=== PATIENT | male | born 1940 | race Caucasian/White ===

== ENCOUNTER 2017-07-08 14:11 | Day surgery (SDC) | payer OTHER ==
[~2017-07-08] VITALS: Ht 165.1 cm; Wt 77.6 kg
[~2017-07-08 14:11] MED LIST: ASPI325 PO; ATOR40TA PO; Antivert25 MG PO; CLOP75 PO; DILT120 PO; GLIP10 PO; HYDCHL12.5 PO; HYDPAM50 PO; ISOMON30 PO; MECL25 PO; METO50ER PO; MULVITMIND PO; NITR.4SL SL; ONDA8 PO; OXYB5 PO; QUET25 PO; RANO500T PO; SALS500 PO
[2017-07-08] MEDS ORDERED: INSULANPEN (14:52)
[2017-07-08] MEDS ORDERED: AMIT25 (14:53)
[2017-07-08] MEDS ORDERED: AMLO5 (14:53)
[2017-07-08] MEDS ORDERED: FINA5 (14:54)
[2017-07-08] MEDS ORDERED: GLUCOSE (14:54)
[2017-07-08] MEDS ORDERED: NOVOFINE (14:55)
[2017-07-08] MEDS ORDERED: TAMS.4ER (14:55)
[2017-07-08] MEDS ORDERED: LEVO750 PO (16:30)
== END 2017-07-08 14:45 | disposition home or self-care (01) ==
LOC: ORSCSDS 14:11
DX: R11.2 Nausea with vomiting, unspecified (principal)
CPT/HCPCS: 82947; J7120

== ENCOUNTER 2017-07-08 15:05 | Emergency (ER) | payer OTHER ==
[~2017-07-08] VITALS: Ht 165.1 cm; Wt 72.6 kg
[~2017-07-08 15:05] MED LIST changes: +AMIT25; +AMLO5; +FINA5; +GLUCOSE; +INSULANPEN; +NOVOFINE; +TAMS.4ER
[2017-07-08 15:39] LABS: BASOPHILS ABSOLUTE AUTO 0.03 K/mm3 (0.00-0.23); BASOPHILS PERCENT AUTO 0 % (0-2); EOSINOPHILS ABSOLUTE AUTO 0.29 K/mm3 (0.00-0.68); EOSINOPHILS PERCENT AUTO 4 % (0-6); Hematocrit 40.7 % (37.0-53.0); Hemoglobin 13.8 g/dL (13.5-17.5); IMMATURE GRAN ABSOLUTE AUTO 0.02 K/mm3 (0.00-0.10); IMMATURE GRAN PERCENT AUTO 0 % (0-1); LYMPHOCYTES ABSOLUTE AUTO 1.61 K/mm3 (0.84-5.20); LYMPHOCYTES PERCENT AUTO 24 % (21-46); MONOCYTES ABSOLUTE AUTO 0.77 K/mm3 (0.16-1.47); MONOCYTES PERCENT AUTO 12 % (4-13); Mean Corpuscular HGB 30.1 pg (26.0-34.0); Mean Corpuscular HGB Conc 33.9 g/dL (31.5-36.5); Mean Corpuscular Volume 89 fL (80-100); Mean Platelet Volume 10.9 fL (9.1-12.4); NEUTROPHILS PERCENT AUTO 60 % (41-73); Platelet Count 163 K/mm3 (150-400); RDW Coefficient Variation 12.3 % (11.7-14.2); RDW Standard Deviation 39.7 fL (35.1-46.3); Red Blood Cell Count 4.59 M/mm3 (4.30-5.90); White Blood Cell Count 6.72 K/mm3 (4.00-11.30)
[2017-07-08 16:05] LABS: Alanine Aminotransfer (ALT/SGP 27 U/L (12-78); Albumin, Blood 3.7 g/dL (3.4-5.0); Alk Phos 71 U/L (50-136); Anion Gap 8 mmol/L (6-16); Aspartate Aminotrans (AST/SGOT 16 U/L (12-37); Bilirubin, Total 1.4 mg/dL (0.1-1.0); Blood Urea Nitrogen 29 mg/dL (8-24); Bun/Creatinine Ratio 17.9 (12.0-20.0); CO2, Blood 24 mmol/L (21-32); Calcium, Blood 8.7 mg/dL (8.5-10.1); Chloride, Blood 107 mmol/L (98-108); Creatinine, Blood 1.62 mg/dL (0.60-1.20); Globulin, Blood 3.8 g/dL (2.2-4.0); Glomerular Filtration Rate 44 (60-); Glucose, Blood 142 mg/dL (70-99); Potassium, Blood 4.1 mmol/L (3.5-5.5); Sodium, Blood 139 mmol/L (136-145); Total Protein, Blood 7.5 g/dL (6.4-8.2); Troponin I <0.015 ng/mL (0.000-0.040)
[2017-07-08] MEDS ORDERED: LEVO750 PO (16:30)
== END 2017-07-08 16:50 | disposition home or self-care (01) ==
LOC: ER 15:05
PROVIDERS: Emergency Medicine
DX: N28.9 Disorder of kidney and ureter, unspecified (principal); K21.9 Gastro-esophageal reflux disease without esophagitis; R07.9 Chest pain, unspecified; E11.9 Type 2 diabetes mellitus without complications; I10 Essential (primary) hypertension; Z87.891 Personal history of nicotine dependence; Z88.5 Allergy status to narcotic agent; Z88.8 Allergy status to other drugs, medicaments and biological substances; Z79.899 Other long term (current) drug therapy; Z79.4 Long term (current) use of insulin
CPT/HCPCS: 36415; 71046; 80053; 83880; 84484; 85025; 93005; 93010; 99284

== ENCOUNTER 2018-04-28 09:29 | Day surgery (SDC) | payer OTHER ==
[~2018-04-28] VITALS: Ht 165.1 cm; Wt 77.9 kg
[~2018-04-28 09:29] MED LIST changes: +LEVO750 PO
--- NOTE | 2018-04-28 11:17 | NUR ---
04/28/18 1117 Gianni Sanchez PT AMBULATED TO BATHROOM WELL. WAITING FOR ANESTHESIOLOGIST TO ASSESS THE PATIENT.
== END 2018-04-28 12:25 | disposition home or self-care (01) ==
LOC: ORSCSDS 09:29
PROVIDERS: Internal Medicine Gastroenterology
PROC: 0DB98ZX Excision of Duodenum, Via Natural or Artificial Opening Endoscopic, Diagnostic (ICD-10-PCS; principal; 2018-04-28 11:15)
PROC: 0DB58ZX Excision of Esophagus, Via Natural or Artificial Opening Endoscopic, Diagnostic (ICD-10-PCS; principal; 2018-04-28 11:15)
DX: K21.0 Gastro-esophageal reflux disease with esophagitis (principal); K29.80 Duodenitis without bleeding; K29.70 Gastritis, unspecified, without bleeding; I10 Essential (primary) hypertension; I25.10 Atherosclerotic heart disease of native coronary artery without angina pectoris; E11.9 Type 2 diabetes mellitus without complications; Z86.73 Personal history of transient ischemic attack (TIA), and cerebral infarction without residual deficits; G47.33 Obstructive sleep apnea (adult) (pediatric); Z79.4 Long term (current) use of insulin; Z79.899 Other long term (current) drug therapy
CPT/HCPCS: 82947; 88305; J7120

== ENCOUNTER 2018-08-29 10:04 | Inpatient (IN) | payer OTHER ==
[~2018-08-29] VITALS: Ht 167.6 cm; Wt 77.7 kg
[2018-08-29 11:29] LABS: Hematocrit 45.6 % (37.0-53.0); Hemoglobin 15.1 g/dL (13.5-17.5); Mean Corpuscular HGB 30.4 pg (26.0-34.0); Mean Corpuscular HGB Conc 33.1 g/dL (31.5-36.5); Mean Corpuscular Volume 92 fL (80-100); Platelet Count 171 K/mm3 (150-400); RDW Coefficient Variation 11.9 % (11.7-14.2); RDW Standard Deviation 40.7 fL (35.1-46.3); Red Blood Cell Count 4.97 M/mm3 (4.30-5.90); White Blood Cell Count 8.27 K/mm3 (4.00-11.30)
[2018-08-29 11:52] LABS: Alanine Aminotransfer (ALT/SGP 29 U/L (12-78); Albumin, Blood 3.5 g/dL (3.4-5.0); Alk Phos 72 U/L (50-136); Anion Gap 6 mmol/L (6-16); Aspartate Aminotrans (AST/SGOT 26 U/L (12-37); Bilirubin, Total 1.2 mg/dL (0.1-1.0); Blood Urea Nitrogen 31 mg/dL (8-24); Bun/Creatinine Ratio 23.7 (12.0-20.0); CHOL/HDL RATIO 4.9; CO2, Blood 25 mmol/L (21-32); Calcium, Blood 8.5 mg/dL (8.5-10.1); Chloride, Blood 109 mmol/L (98-108); Cholesterol 215 mg/dL (50-200); Creatinine, Blood 1.31 mg/dL (0.60-1.20); Globulin, Blood 3.6 g/dL (2.2-4.0); Glomerular Filtration Rate 56 (60-); Glucose, Blood 244 mg/dL (70-99); HDL Cholesterol 44 mg/dL (>39); LDL/HDL RATIO 3.6; Low Density Lipoprotein Chol 157 mg/dL (0-110); Magnesium, Blood 1.9 mg/dL (1.6-2.4); Potassium, Blood 3.9 mmol/L (3.5-5.5); Sodium, Blood 140 mmol/L (136-145); Total Protein, Blood 7.1 g/dL (6.4-8.2); Triglycerides 68 mg/dL (30-160); Very Low Density Lipoprot Chol 13 mg/dL (6-32)
[2018-08-29 11:57] LABS: International Normalized Ratio 1.04
--- NOTE | 2018-08-29 13:04 | NUR ---
ADMIT PT ARRIVED TO ICU 2 AT 1210. PT DROWSY, BUT ORIENTED. SLOW TO RESPOND TO QUESTIONS. PT ORIENTED TO ROOM, CALL LIGHT AND PLAN OF CARE. ACTIVITY RESTRICTIONS REGARDING GROIN SITE EXPLAINED TO PT AND PT VERBALIZED UNDERSTANDING. DR. REECE TO THE ROOM TO TALK WITH PT. AWAITING DOC'S DECISION AT [facility] TO SEE IF PT WILL TRANSFER. PT AT FIRST DENIED HAVING ANY FAMILY OR FRIENDS HE WANTED INFORMED, BUT THEN REQUESTED HIS FRIEND JAYCE BE NOTIFIED. TC TO JAYCE TO GIVE UPDATE AND THEN PT TALKED WITH JAYCE WELL. GROIN SITE REMAINS C/D/I, SOFT, NO HEMATOMA. CONTINUING TO MONITOR.
--- NOTE | 2018-08-29 13:25 | NUR ---
PT GOT ACCEPTED TO [facility] AND HAS A BED. PT INFORMED AND TRANSPORT BEING ARRANGED.
--- NOTE | 2018-08-29 13:57 | NUR ---
REPORT CALLED TO LIZZIE CALIX AT [facility]. GROUND TRANSPORTATION ARRANGED.
--- NOTE | 2018-08-29 14:43 | NUR ---
PT DISCHARGED VIA AMBULANCE TO [facility]. ALL BELONGINGS SENT WITH PT.
== END 2018-08-29 14:44 | disposition short-term general hospital (02) | DRG 282 ==
LOC: ER 10:04 → ICUW 10:05 → ICUE 11:43
PROVIDERS: Emergency Medicine; ADMIT Internal Medicine Interventional Cardiology
PROC: B2121ZZ Fluoroscopy of Single Coronary Artery Bypass Graft using Low Osmolar Contrast (ICD-10-PCS; principal; 2018-08-29)
PROC: B2111ZZ Fluoroscopy of Multiple Coronary Arteries using Low Osmolar Contrast (ICD-10-PCS; 2018-08-29)
PROC: 4A023N7 Measurement of Cardiac Sampling and Pressure, Left Heart, Percutaneous Approach (ICD-10-PCS; 2018-08-29)
PROC: B2151ZZ Fluoroscopy of Left Heart using Low Osmolar Contrast (ICD-10-PCS; 2018-08-29)
DX: I21.3 ST elevation (STEMI) myocardial infarction of unspecified site (principal); Z79.4 Long term (current) use of insulin; Z87.891 Personal history of nicotine dependence; Z95.1 Presence of aortocoronary bypass graft; E78.5 Hyperlipidemia, unspecified; E11.9 Type 2 diabetes mellitus without complications
CPT/HCPCS: 71045; 80053; 80061; 83735; 84484; 85027; 85610; 85730; 86850; 86900; 86901; 93005; 93010; 93459; 99152; 99153; 99285-25; C1760; C1769; J1644; J2250; J3010; J7030; Q9967

== ENCOUNTER 2020-09-28 21:30 | Emergency (ER) | payer OTHER ==
[~2020-09-28] VITALS: Ht 175.3 cm; Wt 68.0 kg
[~2020-09-28 21:30] MED LIST changes: -AMIT25; +AMIT25 PO; -AMLO5; +AMLO5 PO; +Aspirin EC81 MG PO; +BASAGLAR K100 UNIT/1 SC; +CITALOPRAM HBR10 MG PO; +Carafate1 GM/10 ML PO; -FINA5; +FINA5 PO; +Fish Oil Conc1000 MG PO; -INSULANPEN; +INSULANPEN SC; -ISOMON30 PO; +Imdur60 MG PO; +Oyster Shell C500 MG PO; +PANT40 PO; -TAMS.4ER; +TAMS.4ER PO; +Vitamin D2000 UNIT PO; +Zantac150 MG PO
[2020-09-28 22:39] LABS: Source, Urine Clean Catch
[2020-09-28 22:42] LABS: Bilirubin, Urine Neg (Neg); Blood, Urine 2+ (Neg); Glucose Qualitative, Urine 2+ (Neg); Ketones, Urine 2+ (Neg); Leukocyte Esterase, Urine Neg (Neg); Nitrite, Urine Neg (Neg); Protein, Urine 3+ (Neg); Specific Gravity, Urine 1.015 (1.003-1.022); Urobilinogen, Urine NORM (Normal); pH, Urine 6.5 (5.0-8.0)
[2020-09-28 22:44] LABS: BASOPHILS ABSOLUTE AUTO 0.02 K/mm3 (0.00-0.23); BASOPHILS PERCENT AUTO 0 % (0-2); EOSINOPHILS ABSOLUTE AUTO 0.01 K/mm3 (0.00-0.68); EOSINOPHILS PERCENT AUTO 0 % (0-6); Hematocrit 44.2 % (37.0-53.0); IMMATURE GRAN ABSOLUTE AUTO 0.02 K/mm3 (0.00-0.10); IMMATURE GRAN PERCENT AUTO 0 % (0-1); LYMPHOCYTES ABSOLUTE AUTO 0.54 K/mm3 (0.84-5.20); LYMPHOCYTES PERCENT AUTO 12 % (21-46); MONOCYTES ABSOLUTE AUTO 0.89 K/mm3 (0.16-1.47); MONOCYTES PERCENT AUTO 19 % (4-13); Mean Corpuscular HGB 30.5 pg (26.0-34.0); Mean Corpuscular HGB Conc 33.9 g/dL (31.5-36.5); Mean Corpuscular Volume 90 fL (80-100); Mean Platelet Volume 11.3 fL (9.1-12.4); NEUTROPHILS PERCENT AUTO 68 % (41-73); Platelet Count 119 K/mm3 (150-400); RDW Coefficient Variation 11.9 % (11.7-14.2); Red Blood Cell Count 4.92 M/mm3 (4.30-5.90); White Blood Cell Count 4.58 K/mm3 (4.00-11.30)
[2020-09-28 22:45] LABS: Appearance, Urine Clear (Clear); Color, Urine Yellow (P-Yellow)
[2020-09-28 22:52] LABS: Bacteria Not Seen /hpf; Red Blood Cells, Urine 0-2 /hpf (0-2); Squamous Epithelial Cells Not Seen /hpf (Few); White Blood Cells, Urine Not Seen /hpf (0-5)
[2020-09-28 23:08] LABS: Albumin, Blood 3.7 g/dL (3.4-5.0); Albumin/Globulin Ratio 0.9 (0.8-1.8); Bilirubin, Total 1.4 mg/dL (0.1-1.0); Bun/Creatinine Ratio 19.2 (12.0-20.0); Calcium, Blood 8.8 mg/dL (8.5-10.1); Creatinine, Blood 1.51 mg/dL (0.60-1.20); Free Thyroxine 1.16 ng/dL (0.70-1.60); Potassium, Blood 3.9 mmol/L (3.5-5.5); Thyroid Stimulating Hormone 0.33 uIU/mL (0.360-4.800); Total Protein, Blood 7.7 g/dL (6.4-8.2)
== END 2020-09-29 02:03 | disposition home or self-care (01) ==
LOC: ER 21:30
PROVIDERS: Emergency Medicine
DX: R11.2 Nausea with vomiting, unspecified (principal); R10.9 Unspecified abdominal pain; I10 Essential (primary) hypertension; E11.9 Type 2 diabetes mellitus without complications; E78.5 Hyperlipidemia, unspecified; R41.0 Disorientation, unspecified; R47.9 Unspecified speech disturbances; Z79.82 Long term (current) use of aspirin; Z79.4 Long term (current) use of insulin; Z79.899 Other long term (current) drug therapy; Z95.1 Presence of aortocoronary bypass graft; Z88.5 Allergy status to narcotic agent; Z88.8 Allergy status to other drugs, medicaments and biological substances
CPT/HCPCS: 70450; 71045; 80053; 81001; 82140; 84439; 84443; 84484; 85025; 96374; 99285-25; J2405

== ENCOUNTER 2020-10-02 08:03 | Inpatient (IN) | payer OTHER ==
[~2020-10-02] VITALS: Ht 167.6 cm; Wt 65.7 kg
[2020-10-02 08:57] LABS: BASOPHILS ABSOLUTE AUTO 0.01 K/mm3 (0.00-0.23); BASOPHILS PERCENT AUTO 0 % (0-2); EOSINOPHILS PERCENT AUTO 0 % (0-6); Hematocrit 50.9 % (37.0-53.0); Hemoglobin 17.2 g/dL (13.5-17.5); IMMATURE GRAN ABSOLUTE AUTO 0.03 K/mm3 (0.00-0.10); IMMATURE GRAN PERCENT AUTO 1 % (0-1); LYMPHOCYTES ABSOLUTE AUTO 0.57 K/mm3 (0.84-5.20); LYMPHOCYTES PERCENT AUTO 13 % (21-46); MONOCYTES ABSOLUTE AUTO 0.59 K/mm3 (0.16-1.47); MONOCYTES PERCENT AUTO 13 % (4-13); Mean Corpuscular HGB 30.3 pg (26.0-34.0); Mean Corpuscular HGB Conc 33.8 g/dL (31.5-36.5); Mean Corpuscular Volume 90 fL (80-100); Mean Platelet Volume 12.1 fL (9.1-12.4); NEUTROPHILS ABSOLUTE AUTO 3.22 K/mm3 (1.96-9.15); NEUTROPHILS PERCENT AUTO 73 % (41-73); Platelet Count 116 K/mm3 (150-400); RDW Coefficient Variation 11.8 % (11.7-14.2); Red Blood Cell Count 5.68 M/mm3 (4.30-5.90); White Blood Cell Count 4.42 K/mm3 (4.00-11.30)
[2020-10-02 09:00] LABS: Albumin, Blood 3.7 g/dL (3.4-5.0); Albumin/Globulin Ratio 0.8 (0.8-1.8); Bilirubin, Total 1.4 mg/dL (0.1-1.0); Bun/Creatinine Ratio 23.9 (12.0-20.0); Calcium, Blood 8.8 mg/dL (8.5-10.1); Creatinine, Blood 1.84 mg/dL (0.60-1.20); Globulin, Blood 4.5 g/dL (2.2-4.0); Potassium, Blood 4.4 mmol/L (3.5-5.5); Total Protein, Blood 8.2 g/dL (6.4-8.2)
[2020-10-02 09:16] LABS: Source, Urine Clean Catch
[2020-10-02 09:16] LABS: Ethanol (Alcohol), Blood, Med <3 mg/dL; Magnesium, Blood 2.1 mg/dL (1.6-2.4); Troponin I <0.015 ng/mL (0.000-0.040)
[2020-10-02 09:27] LABS: Appearance, Urine Clear (Clear); Bilirubin, Urine Neg (Neg); Blood, Urine 3+ (Neg); Color, Urine Yellow (P-Yellow); Glucose Qualitative, Urine 3+ (Neg); Ketones, Urine 2+ (Neg); Leukocyte Esterase, Urine Neg (Neg); Nitrite, Urine Neg (Neg); Protein, Urine 3+ (Neg); Specific Gravity, Urine 1.015 (1.003-1.022); Urobilinogen, Urine NORM (Normal)
[2020-10-02 09:39] LABS: Amorphous Mod (0-Heavy); Bacteria Rare /hpf; Squamous Epithelial Cells Rare /hpf (Few); White Blood Cells, Urine 0-2 /hpf (0-5)
[2020-10-02 09:51] LABS: SARS-Cov-2 (COVID-19) PCR, MMC POSITIVE (NEGATIVE)
[2020-10-02] MEDS ORDERED: MULTIPLE VITAM1 EACH PO (15:33)
[2020-10-02] MEDS ORDERED: PROP10 PO (15:35)
[2020-10-02] MEDS ORDERED: VITAMIN E100 UNI1 PO (15:37)
[2020-10-02] MEDS ORDERED: PERIDEX15 ML PO (15:41)
--- NOTE | 2020-10-02 16:36 | NUR ---
CALLED FOR REPORT, INSTRUCTED THAT THIS RN WILL BE CALLED BACK BY ED RN
[2020-10-02] MEDS ORDERED: METO25 PO (17:07)
--- NOTE | 2020-10-02 17:17 | NUR ---
SBAR REPORT FROM TARIQ MARTINEZ RN
--- NOTE | 2020-10-02 18:23 | NUR ---
DISCHARGE PLANNING NEPHEW BEVERLY DAMIAN LIVES IN [place], CAME TO HELP AFTER CAREGIVER COULD NOT CARE FOR PT ANY LONGER. SISTER LIVES IN [place], [place]. NEPHEW WOULD LIKE TO PLACE IN FACILITY IN [place] WITH [facility], WHEN ABLE. AT THIS TIME, UPON DISCHARGE, HE WOULD LIKE TO PLACE HIM NEAR AN AIRPORT: [place] OR [place].
--- NOTE | 2020-10-03 02:53 | NUR ---
elderly Male PT admitted yesterday with AMS & Covid 19. He is DNR status. IV NS fluid bolus 500 ml given & has 1 l IVF with K infusing. He is not responsive to verbal stimuli resting quietly in special droplet contact isolation for Covid 19. [employer]. Has Sister out of state, had caregiver who reportedly quit. HAs not eaten or drinken this shift. Was medicated in ER for aggitated delirum & has been sleeping. 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 On oxygen 2 l for covid pneumonia.
[2020-10-03 06:23] LABS: BASOPHILS ABSOLUTE AUTO 0.02 K/mm3 (0.00-0.23); BASOPHILS PERCENT AUTO 0 % (0-2); EOSINOPHILS PERCENT AUTO 0 % (0-6); Hematocrit 48.1 % (37.0-53.0); Hemoglobin 15.8 g/dL (13.5-17.5); IMMATURE GRAN ABSOLUTE AUTO 0.02 K/mm3 (0.00-0.10); IMMATURE GRAN PERCENT AUTO 0 % (0-1); LYMPHOCYTES ABSOLUTE AUTO 1.19 K/mm3 (0.84-5.20); LYMPHOCYTES PERCENT AUTO 23 % (21-46); MONOCYTES ABSOLUTE AUTO 0.62 K/mm3 (0.16-1.47); MONOCYTES PERCENT AUTO 12 % (4-13); Mean Corpuscular HGB 30.2 pg (26.0-34.0); Mean Corpuscular HGB Conc 32.8 g/dL (31.5-36.5); Mean Corpuscular Volume 92 fL (80-100); Mean Platelet Volume 11.9 fL (9.1-12.4); NEUTROPHILS ABSOLUTE AUTO 3.37 K/mm3 (1.96-9.15); NEUTROPHILS PERCENT AUTO 65 % (41-73); Platelet Count 104 K/mm3 (150-400); RDW Coefficient Variation 12.2 % (11.7-14.2); RDW Standard Deviation 41.3 fL (35.1-46.3); Red Blood Cell Count 5.23 M/mm3 (4.30-5.90); White Blood Cell Count 5.22 K/mm3 (4.00-11.30)
--- NOTE | 2020-10-03 06:37 | NUR ---
pt ADMITTEDFOR cOVID 19 PNEUMONIA & ams. hEAD ct SHOWS MULIPLE BRAIN INFARCTS. S pt SLEPT SOUNDLY MOST OF SHIFT WOKEN UP TO TOILET. pt USED URINAL WITH ASSIST & VOIDED ONLY 200 ML T 1 URINARY INCONT. iv ns FLUID BOLUS 500 ML & 1 L IV FLUIDS WITH POTASSIUM RUNNING. dRINKING SOME WITH VIA STRAW. pt HAS WEAK LOOSE NONPROD COUGH SUCTION SET UP &^ PT ALLOWED BUT CONTINUES NONPRODUCTIVE
[2020-10-03 06:40] LABS: Albumin, Blood 3.1 g/dL (3.4-5.0); Albumin/Globulin Ratio 0.7 (0.8-1.8); Bilirubin, Total 0.8 mg/dL (0.1-1.0); Bun/Creatinine Ratio 25.4 (12.0-20.0); Calcium, Blood 8.3 mg/dL (8.5-10.1); Creatinine, Blood 1.93 mg/dL (0.60-1.20); Globulin, Blood 4.2 g/dL (2.2-4.0); Total Protein, Blood 7.3 g/dL (6.4-8.2)
--- NOTE | 2020-10-03 11:26 | NUR ---
Update 10/03/20: Per chart review, pt. will not be appropriate to return home based on care needs. [facility] listed for primary insurance. Does not have group home care benefits. If the patient's condition improves over the next few days, I will begin to talk with the family and caregiver regarding financial planning for facility placement. There is a potential need for hospice care as well. Plan to continue to monitor patient's course and provide care coordination as needed.
--- NOTE | 2020-10-03 12:08 | NUR ---
Upon receiving a spiritual care consult, I visit patient. Patient is lying in bed and alert. No family present. Patient immediately laughs at my jokes for rapport is easily established. Patient struggles to communicate and relay information but is clearly able to confirm that he would like a prayer to be said for him. I galdly provide prayer. Patient is uplifted in his affect without much effort and is quick to smile and laugh. Patient may not remember my visit but during our interaction his mood is elevated and his peace is increased. I will continue to remain available to patient and family.
--- NOTE | 2020-10-03 15:30 | NUR ---
SHIFT SUMMARY ON ROOM AIR. MORE ALERT TODAY AND AWAKE MOST OF SHIFT. SPEECH NON-SENSICAL AND PARANOID AT TIMES. IMPULSIVE: PULLED IV, CONDOM CATH, AND ATTEMPTED TO GET OUT OF BED ONCE. IV REPLACED. POOR INTAKE/APPETITE. NEPHEW AT BEDSIDE MOST OF SHIFT, PLANS ON RETURNING HOME TO [place] TOMORROW, AND OTHER FAMILY COMING INTO TOWN LATER THIS WEEK TO HELP FACILITATE DISCHARGE PLANNING/PLACEMENT.
--- NOTE | 2020-10-03 17:11 | NUR ---
Update 10/03/20 1645: Met with patient's nephew to discuss long-term care planning. At this time, the pt. is not appropriate to sign for his sister to obtain POA. She would be considered the next of kin to make healthcare decisions at this time. The pt. is not likely to be accepted to local SNF or long-term facility due to positive COVID test. I will contact the state in the am to determine what facilities are designated for COVID patients at this time. I believe the pt. will qualify for terminal gauger befits through the VA as he is above 60% covered per his sister. I will confirm that with the VA as well. If it is determined that the pt. will likely benefit from PT within SNF, we will send information to the SNF in [facility] that is accepting COVID positive patients [facility] for review. exterminator termite care planning in process as well.
--- NOTE | 2020-10-03 19:14 | NUR ---
SISTER JESSICA [phone],
--- NOTE | 2020-10-04 05:04 | NUR ---
MUSIC PUBLICIST SUMMARY PT A/O X1 TO SELF. SLEPT WELL TONIGHT. DENIED PAIN, NAUSEA, SOB. ROOM AIR MAINTAINING SATS IN THE MID 90'S. PT GOT A LITTLE IRRITATED AT STAFF IN THE MIDDLE OF NIGHT AND REFUSED TO HAVE ATTENDS CHECKED ONE TIME. PT WENT BACK TO SLEEP. INCONTIENT/CONTIENT. ATTENDS IN PLACE. LUNGS DIM IN ALL LUNG ACOSTA. NO ACUTE CHANGES. CALL LIGHT WITHIN REACH, BED ALARM ON, WILL CONTINUE TO MONITOR.
--- NOTE | 2020-10-04 06:44 | NUR ---
[facility] RESTRAINT HOSPITALIST DR. FONTENOT NOTIFIED OF PT'S IMPULSIVE BEHAVIOR, TRIES TO GET OUT OF BED. HARIS VEST ORDERED AND PLACED ON AT 0632. IM ZYPREXA GIVEN. CALL LIGHT WITHIN REACH, BED ALARM ON. WILL REPORT TO ONCOMING RN.
--- NOTE | 2020-10-04 15:33 | NUR ---
AT APPROXIMATELY 1140 THIS SHIFT. WHILE THIS RN AND PLATE PAINTER's WERE PROVIDING CARE TO PATIENT, PT BECAME AGITATED AND REFUSING TO WEAR HARIS VEST FOR SAFETY. INTERVENTIONS TO DECREASE PATIENT'S AGITATION DONE SUCH PHONE CALL TO PATIENT'S NEPHEW AND CALM REASSURANCE, BUT UNABLE TO DEESCALATE. PT BECAME UNCOOPERATIVE AND COMBATIVE TO STAFF, PT WAS ATTEMPTING TO PUNCH AND KICK STAFF. ADY SCHNEIDER INITIATED. STAFF NURSES, NURSING COMPUTER NUMERIC CONTROL SETTER, CHARGE NURSE, SECURITY AND DR. DELACRUZ PRESENT DURING SITUATION. PT GIVEN IM ZYPREXA AND IV ATIVAN ORDERED. PT ALSO PLACE ON SOFT RESTRAINTS TO ELIGIO. WRIST AND ANKLES ORDERED BY DR. DELACRUZ.
--- NOTE | 2020-10-04 16:36 | NUR ---
ROOM TRANSFER PT TRANSFERRED TO ROOM 345. PT CONTINUES ON RESTRAINTS ORDERED. TRANSFERRED VIA BED. REPORT GIVEN TO LIZZIE PÉREZ.
--- NOTE | 2020-10-04 17:33 | NUR ---
PATIENT IS ALERT. HE FOLLOWS DIRECTIONS. HE IS IN A HARIS VEST RESTRAINT AND SOFT RESTRAINTS X4 EXTREMITIES. HE PULLS ON THE RESTRAINTS A LITTLE BIT BUT NOT AGRESSIVELY AT THIS TIME. HE IS LAYING IN BED, QUIET AT THIS TIME. REMOTE MONITORING IS ON AND HAS VISUAL OF THE PATIENT. ATTENDS IN PLACE, INCONTINENT OF URINE. ON RA NO SOB. WILL CONTINUE TO MONITOR
--- NOTE | 2020-10-04 18:13 | NUR ---
Pt has been moved to a room with closer supervision, as he has been increasingly confused and at times combative. For pt's and staff's safety, soft restraints are in use. Unable to communicate effectively with patient at this time due to increased confusion. Plan to follow and see pt when behaviors decrease. Will call pt's contact tomorrow.
--- NOTE | 2020-10-05 03:24 | NUR ---
SHIFT SUMMARY PATIENT HAD NO ACUTE CHANGES OBSERVED. ALERT TO SELF AND BEDREST. PIV REMAINS INTACT. CBG 278. VSS/AFEBRILE. NO S/SX OF PAIN, SOB, AND N/V. IN FOUR PT RESTRAINTS PER ORDER AND HARIS VEST. HX OF AGITATION AND COMBATIVE. ON ROOM AIR AND ON CAMERA. TOOK MEDS IN APPLESAUCE. BED IN LOWEST POSITION AND ALARM ACTIVATED. WILL CONTINUE TO MONITOR UNTIL DAY SHIFT NURSE ASSUMES CARE.
--- NOTE | 2020-10-05 13:17 | NUR ---
Update 10/05/20: Provided update for patients sister regarding care and dischare planning. Advised her that we are holding off with arranging for placement until pt. more appropriate for discharge.Update 10/04/20: Unfortunately, pt. required mitch restraints yesterday. He is not yet appropriate for discharge to facility. VA benefits for intermodal dispatcher care in place. Will hold off on sending state approval for COVID SNF placement until early next week.
--- NOTE | 2020-10-05 15:28 | NUR ---
ELBOW AND HEEL PROTECTORS PLACED ON THE PATIENT
--- NOTE | 2020-10-05 17:31 | NUR ---
PATIENT IS ALERT AND ORIENTED TO SELF AND FOLLOWING DIRECTIONS. HE BECOMES COMBATIVE WITH STAFF AT TIMES. HE IS IN A HARIS AND SOFT WRIST AND ANKLE RESTRAINTS. NS AT 100/HR. CONDOM CATHETER IN PLACE AND DRAINING CLEAR YELLOW URINE. PATIENT HAS A POOR APPETITE. REPOSITIONING IN BED WITH PILLOWS. ELBOW AND HEEL PROTECTORS IN PLACE. WILL CONTINUE TO MONITOR
--- NOTE | 2020-10-06 02:18 | NUR ---
PATIENT REMAINS ON ISOLATION FOR COVID 19. ORIENTED TO SELF AND VERY CONFUSED. CAN BECOME VERY IRRITABLE AND COMBATIVE WITH STAFF. IN 4-PT SOFT RESTRAINTS AND HARIS VEST DUE TO PATIENTS COMBATIVE AND CONFUSED STATE. PATIENT IS CHECKED ON Q2HRS PER PROTOCOL AND CARE PROVIDED PATIENT WILL ALLOW. BP AND HR RUNS ELEVATED AT TIMES. PATIENT JUST CHECK ON AND CARE PROVIDED. CALL LIGHT WITHIN REACH.
[2020-10-06 06:01] LABS: Bun/Creatinine Ratio 26.5 (12.0-20.0); Calcium, Blood 8.1 mg/dL (8.5-10.1); Creatinine, Blood 1.7 mg/dL (0.60-1.20); Potassium, Blood 3.6 mmol/L (3.5-5.5)
--- NOTE | 2020-10-06 10:38 | NUR ---
PATIENT HAS BEEN SLEEPING IN BED ALL SHIFT. VITALS TAKEN AND WNL. BG 126.
--- NOTE | 2020-10-06 12:01 | NUR ---
PATIENT AWAKENS EASILY BUT IS FAST TO FALL BACK ASLEEP. HE WAS ABLE TO WAKE UP AND ASK FOR A DRINK OF WATER.
--- NOTE | 2020-10-06 17:11 | NUR ---
PATIENT IS ALERT AND DISORIENTED. HE IS COMBATIVE AT TIMES. IN HARIS AND 4 POINT RESTRAINTS. PATIENT SLEPT THROUGHOUT THE NIGHT LAST NIGHT AND UNTIL 11AM TODAY. HE MISSED BREAKFAST. HE ATE 5% OF HIS LUNCH. HE BECAME AGITATED AND COMBATIVE SOON AFTER HE WOKE UP. CONDOM CATHETER IS IN PLACE AND DRAINING. BOWEL CARE MEDICATIONS ORDERED TODAY. WILL CONTINUE TO MONITOR
--- NOTE | 2020-10-07 04:08 | NUR ---
SHIFT SUMMARY: PT IS ALERT AND ORIENTED TO SELF WITH OTHERWISE SIGNIFICANT CONFUSION. PT IS IRRITABLE AND AGRESSIVE TOWARDS STAFF, HE REMAINS IN 4 POINT AND VEST RESTRAINTS. PT DOES NOT USE HIS CALL LIGHT. PT DID TAKE HIS MEDS WHOLE WITH APPLESAUCE WITHOUT INCIDENT. PT REMAINS ON ROOM AIR WITH SATS STAYING GREATER THAN 90%. PT DOES APPEAR TO BE SOB UPON EXERTION AND WITH OCCASIONAL CONGESTED COUGH. PT SHOWS NO S/S FOR PAIN, NAUSEA, OR VOMITING. NO ACUTE CHANGES OR COMPLICATIONS OVERNIGHT. WILL CONTINUE TO MONITOR.
[2020-10-07 06:44] LABS: Albumin, Blood 2.3 g/dL (3.4-5.0); Albumin/Globulin Ratio 0.7 (0.8-1.8); Bilirubin, Total 0.7 mg/dL (0.1-1.0); Bun/Creatinine Ratio 23.8 (12.0-20.0); Calcium, Blood 7.5 mg/dL (8.5-10.1); Creatinine, Blood 1.47 mg/dL (0.60-1.20); Globulin, Blood 3.2 g/dL (2.2-4.0); Total Protein, Blood 5.5 g/dL (6.4-8.2)
--- NOTE | 2020-10-07 17:57 | NUR ---
shift summary: Pt has been sleeping throughout the day. when awake has been combative with ADL's. Pt attempts to eat but states the food does not taste good. Possibly unable to taste food. Oral care was completed today. Pt has slurred speech and when eating or drinking thickened fluids coughs at times post intake. Pt more a/o by the end of the day, but continues to be confused why he is hospitalized even after explaining to him why he is here.
--- NOTE | 2020-10-08 04:29 | NUR ---
SHIFT SUMMARY A/O TO SELF ONLY. EASILY AGITATED, YELLING OUT AND CUSSING AT STAFF. RESTRAINTS CONTINUE TO BE IN PLACE FOR SAFETY. CONDOM CATH PATENT AND DRAINING. WET, PRODUCTIVE COUGH NOTED. CURRENTLY NPO WITH ORAL CARE PRN. VSS, NO ACUTE CHANGES AT THIS TIME. BED IN LOWEST POSITION WITH CALL LIGHT IN REACH. WILL CONTINUE TO MONITOR AND REPORT TO ONCOMING RN.
[2020-10-08 09:26] LABS: Anion Gap 9 mmol/L (6-16); Blood Urea Nitrogen 25 mg/dL (8-24); Bun/Creatinine Ratio 22.5 (12.0-20.0); CO2, Blood 20 mmol/L (21-32); Calcium, Blood 8.5 mg/dL (8.5-10.1); Chloride, Blood 114 mmol/L (98-108); Creatinine, Blood 1.11 mg/dL (0.60-1.20); Glomerular Filtration Rate >60 (60-); Glucose, Blood 119 mg/dL (70-99); Potassium, Blood 3.7 mmol/L (3.5-5.5); Sodium, Blood 143 mmol/L (136-145)
--- NOTE | 2020-10-08 13:38 | NUR ---
Update 10/08/20: Discussed care with patient's family and provided updates. They are interested in pursuing hospice care. They do not have preference on providers. With patient's current condition, it is uncertain if he will be well enough to be discharged from the hospital at this point. Additionally, the fact that he is COVID-19 postive will add complications and a possible delay in discharge. I am requesting palliative care to contact family to offer support and answer questions regarding end of life planning. The family does want to visit pt. as soon as they are able. They are in the process of planning for travel here.
--- NOTE | 2020-10-08 15:02 | NUR ---
Update 10/08/20: Palliative care nurse Brisa spoke with family regarding care. Family requesting comfort care at this time. Main contact for family will now be patient's nephew David [phone] per family request.
--- NOTE | 2020-10-08 18:27 | NUR ---
PT REMAINED IN RESTRAINTS MOST OF DAY FOR SAFETY. PT ATTEMPTED TO GET OUT OF BED AND PULL AT LINES T/O DAY. PT YELLED OUT FREQUENTLY T/O THE DAY AND APPEARED AGITATED BUT WHEN STAFF IN TO ASSESS PT WAS VERY PLEASANT AND COOPERATIVE WITH CARE. CALLED TO ADVISE ON NPO STATUS AND IN TO ASSESS PT. ST EVAL/ DIET PER ST ORDERED. ST RECOMEND PT TO BE ON PUREE DIET WITH 1:1 FEEDING ASSISTANCE. PT VERY EAGER TO EAT AND TOLERATED DIET. PT HAD CONDOM CATH IN PLACE WITH ATTENDS BUT CONTINUED TO MOVE AROUND DISCONNECTING CONDOM CATH. PT IN ATTENDS ONLY NOW. CHANGED PT TO COMFORT CARE AND D/C'D MEDS, IVF AND IV. RFA D/C INTACT WITHOUT DIFFICULTY. HARIS VEST & ARM RESTRAINTS IN USE PLACE AT THIS TIME FOR PT SAFETY. D/C PLANNING FOR PLACEMENT
--- NOTE | 2020-10-08 21:02 | NUR ---
Per family request, Primary Contact is nephew, David [phone]. He will update his mom, pt's sister Rhonda with any news/updates. Summary of family conference by conference call with three family members. I was requested per ROSS GUERRIER and to reach out to family and answer their questions re: EOL and comfort care. and ROSS GUERRIER had already been speaking with family today about this. After our long conversation family requests that we transition pt to comfort care in an effort to minimize his suffering & not prolong his suffering, having to be restrained. Family initially spoke of coming to visit but in discussing sister Rhonda's risks with Travel in the pandemic at 83 years old, family will not be coming. They would appreciate daily updates. [facility] can help with this. Discharge to another facility may be difficult due to pt's dementia, behaviors and Covid infection. After my conversation with family I contacted and Flores of [facility] to update and VO obtained and entered for comfort care. This was all reviewed with pt's RN also. Plan daily updates to family, support for s/s management. Family hopeful for less agitation and decreasing need for restraints. They understand that we must use restraints for pt's safety as needed.
--- NOTE | 2020-10-09 04:43 | NUR ---
SHIFT SUMMARY A/O SELF ONLY, COMFORT CARE MEASURES IN PLACE. ATTEMPTING TO GET OOB AND TAKING OFF ATTENDS T/O SHIFT. REPOSITIONING AND ORAL CARE Q2 AND PRN. NO ACUTE CHANGES AT THIS TIME. BED IN LOWEST POSITION WITH CALL LIGHT IN REACH. WILL CONTINUE TO MONITOR AND REPORT TO ONCOMING RN.
--- NOTE | 2020-10-09 16:35 | NUR ---
PT IN BED WITH HARIS VEST AND SOFT WRIST RESTRAINGS DURING MORNING. PT WAS NOT VERY ALERT THIS MORNING AND AM MEDS HELD FOR ASPITATION RISK. PT WOULD MOVE AROUND WITH EYES CLOSED AND MUMBLING AT TIMES PUTTING LEGS OVER SIDE RAILS. PT WAS ALERT AT LUNCH AND SAT UP IN BED FOR LUNCH WITH FEEDING ASSISTANCE. PT REFUSED MOST OF HIS MEAL. LATER IN AFTERNOON PT DID EAT CHOCOLATE PUDDING AND A NEPRO SHAKE. SOFT WRIST RESTRAINTS REMOVED AND PT REMAINS IN BED WITH HARIS VEST IN PLACE FOR SAFETY AND FALL RISK. PALLATIVE CARE RN REPORTS PT'S SISTER IS FLYING IN FROM OUT OF STATE TOMORROW TO VISIT WITH PT. THERE HAS BEEN DISCUSSION OF HER WANTING TO BRING PT HOME WITH HER IF HE CAN TOLERATE TRAVELING. PLAN FOR FURTHER DISCUSSION WITH FAMILY APON ARRIVAL. PT HAS BEEN SLEEPING MOST OF THE DAY BUT DOES WAKE EASILY AND IS PLEASANT AND COOPERATIVE WITH CARE. PT IS ABLE TO FOLLOW SIMPLE DIRECTIONS AND HAVE APPROPRIATE CONVERSATIONS LIMITED BY SOME CONFUSION.
--- NOTE | 2020-10-09 17:48 | NUR ---
Update 10/09/20: Contacted the state for COVID surge placement review. I received a response back this evening that pt. will be reviewed. I also received a second email that the only COVID facility currently in the state is full. I am still hopeful that they will review and accept pt, as we currently do not have an alternative solution. Even with hospice, he is not safe at home. He will not be accepted into a facility that is not considered specifically dedicated to COVID. Received [facility] from [facility] will review patient's packet. Will send packet in the am for review and contact Cortez to ensure that he has received it. Pt. will also be comfort care. Notified facility of this as well. [facility] line: [phone]
--- NOTE | 2020-10-10 03:57 | NUR ---
SHIFT SUMMARY A/O TO SELF ONLY, COMFORT CARE MEASURES IN PLACE. Q2 REPOSITIONING AND ORAL CARE PRN. PLEASANTLY CONFUSED THIS SHIFT. DENIES PAIN OR SOB. MEDICATED FOR ANXIETY X1. NO ACUTE CHANGES AT THIS TIME. BED IN LOWEST POSITION WITH CALL LIGHT IN REACH. WILL CONTINUE TO MONITOR AND REPORT TO ONCOMING RN.
--- NOTE | 2020-10-10 17:06 | NUR ---
PT REMAINED ON HARIS VEST ALL DAY. CONT TO TRY AND GET OUT OF BED WHEN HE WAS ALERT. PT PLEASANTLY CONFUSED AND EASILY REDIRECTED T/O DAY. PT WAS EAGER TO EAT AND DRINK WHEN OFFERED. PT UNDERSTANDS THAT HE IS IN THE HOSPITAL BUT IS CONFUSED ABOUT THE CIRCUMSTANCES. RN ASSISTED PT WITH A PHONE CALL AND HE WAS ABLE TO TALK WITH HIS NEPHEW, BEVERLY, FOR ABOUT 10 MINUTES. PT UNDERSTANDES THAT HIS SISTER IS COMING TO VISIT AND HE APPEARS PLEASED AND EXCITED TO SEE HER AND THE POTENTIAL TO RETURN "HOME" TO [place]. PT DENIED PAIN T/O THE DAY BUT THIS NURSE DID NOTICE THICK COATING ON HIS TONGUE DURING ORAL CARE AND PT REPORTS THAT HIS MOUTH "BERMEO". NYSTATIN SWISH AND SWALLOW WAS ORDERED BY MD. PT WAS ABLE TO ASSIST WITH SOME OF HIS ADL'S TODAY. HE DIS HOLD HIS MOUTH SWAB AND PERFORM SOME OF HIS OWN ORAL CARE WHEN HE WAS ALERT. PT REQUESTED PEPSI AND WATER T/O THE DAY AND IS ABLE TO HOLD HIS CUP AND TAKE SIPS WITH ASSISTANCE. PT WAS ABLE TO SIT UP ON EDGE OF BED WITH RN ASSISTANCE AND SUPERVISION. PALLIATIVE CARE RN, KELVIN, IS WORKING WITH FAMILY FOR D/C PLANNING. NO OTHER CHANGES TO REPORT AT THIS TIME.
--- NOTE | 2020-10-10 18:33 | NUR ---
PTS SISTER ARRIVED AND IS IN AT BEDSIDE WITH PT. PALLITVE CARE RN AND MD NOTIFIED OF SISTERS ARRIVAL.
--- NOTE | 2020-10-11 03:42 | NUR ---
SHIFT SUMMARY A/O TO SELF ONLY, COMFORT CARE MEASURES IN PLACE. SISTER AT BEDSIDE DURING BEGINNING OF SHIFT. PT ALERT AND RESTLESS T/O NIGHT, PO ATIVAN GIVEN. REPOSITIONING AND ORAL CARE PRN. HARIS IN PLACE FOR SAFETY. NO ACUTE CHANGES. BED IN LOWEST POSITION WITH CALL LIGHT IN REACH. WILL CONTINUE TO MONITOR AND REPORT TO ONCOMING RN.
--- NOTE | 2020-10-11 10:07 | NUR ---
COMFORT CARE ASSESSMENT PATIENT LAYING IN BED, RELAXED, WITH NO SIGNS OF PAIN/DISCOMFORT. SISTER, JUNO, AT BEDSIDE.
--- NOTE | 2020-10-11 12:47 | NUR ---
Met with pt's sister Lisa today. She had many questions and concerns regarding her brother's future. We discussed prognosis, as well as reviewed the course of his 9 day so far hospital stay. While she feels relieved that his condition is not imminent, she also states she wishes he would "go quickly", so he does not have to suffer. She was tearful t/o the meeting, explaining this has been even harder as she lives in another state ([place] She flew in yesterday and will be staying through Thursday, October 14. She is hopeful that pt will be able to "eventually" be transported to a VA facility in [place], closer to her. However, she is still working on this plan with a VA "counselor", she called them. She also states this isn't a guarantee. So far, it sounds as if she is open to letting go of all preconceived notions, and willing to accept that pt will go to wherever is currently accepting Covid + patients. [facility]ibly [facility]. I notified Flores from [facility] that Lisa is here, and she will be attempting to meet with her this afternoon.
--- NOTE | 2020-10-11 14:00 | NUR ---
COMFORT CARE ASSESSMENT PATIENT MEDICATED PER EMAR FOR PAIN. PATIENT RECIEVED BED BATH. FAMILY AT BEDSIDE.
--- NOTE | 2020-10-11 17:35 | NUR ---
COMFORT CARE ASSESSMENT PATIENT MEDICATED FOR PAIN ONCE TODAY. PATIENT HAS BEEN SLEEPING MOST OF SHIFT. HARIS VEST DISCONTINUED. FAMILY AT BEDSIDE ALL DAY.
--- NOTE | 2020-10-11 18:45 | NUR ---
Update 10/11/20: Patient's sister Tessa came to visit him. We discussed patient's care including possible options including COVID surge facilities and VA in [place]. I advised Tessa that the patient would be served for us to accept placement at whichever facility is willing to accept him first. She is agreeable. Tessa would like to discuss advanced directives. I requested that palliative care discuss those with her further. Additionally, we discussed sheltered workshop executive director care placement. Tessa wishes to have patient accepted to VA facility in [place] if appropriate after SNF stay. Requested update from Praveen Massey with [facility]. Unfortunately, they were inundated with referrals from around the state. They were only able to accept three today due to staffing availability. Praveen said that pt. will hopefully be accepted tomorrow. I will update nursing staff and family as I received additional information. Update 10/10/20: COVID surge facility opened at [facility]. immediately requested through [employer] that they change COVID surge placement request to [facility] and copied the [facility] clinical information technology security manager in the email request. Faxed [facility] the paperwork with attention to Praveen Massey. Praveen contact me to let me know that they were reviewing for placement. Spoke with [facility] Care Synchro Assembler Janelle, the [facility] will potentially accept some of the veterans needing placement at this time. Gave Janelle Carranza's information to send.
--- NOTE | 2020-10-12 05:04 | NUR ---
SHIFT SUMMARY A/O TO SELF, COMFORT CARE MEASURES IN PLACE. SL ROXANOL GIVEN X1. PLEASANTLY CONFUSED AND COOPERATIVE WITH CARE. PT ABLE TO REPOSITION SELF IN BED, ORAL CARE PRN. NO ACUTE CHANGES AT THIS TIME. BED IN LOWEST POSITION WITH CALL LIGHT IN REACH. WILL CONTINUE TO MONITOR AND REPORT TO ONCOMING RN.
--- NOTE | 2020-10-12 09:12 | NUR ---
PATIENT CALLING OUT, C/O PAIN TO LEGS, MEDICATED PER RX, REPOSITIONED IN BED. PATIENT ONLY WANTING TO EAT APPLESAUCE, NEEDS ASSISTANCE. CONFUSED/DISORIENTED, COOPERATIVE WITH CARE.
--- NOTE | 2020-10-12 10:48 | NUR ---
COMFORT CARE ASSESSMENT PATIENT IS SLEEPING. SISTER, JUNO, IS AT BEDSIDE.
--- NOTE | 2020-10-12 17:44 | NUR ---
Met with pt's sister again this morning. She is planning to return home on thursday. She speaks very plainly that she would like it if pt was able to be placed and ouside the hospital. She has been spending time with him, assisting with feeding and just visiting him in general. I've also spoken with her son on occasion, and we are all on the same page. Flores from [facility] is continuing to seek placement. ]
--- NOTE | 2020-10-12 18:35 | NUR ---
COMFORT CARE ASSESSMENT PATIENT DENIED PAIN ALL SHIFT. PATIENT SLEPT MOST OF SHIFT. PATIENT RESTING COMFORTABLY WITH SISTER AT BEDSIDE. PATIENT EATING VERY LITTLE.
--- NOTE | 2020-10-12 20:40 | NUR ---
PT ANXIOUS, REMOVING OWN ATTENDS, AND YELLING OUT. SISTER AT THE BEDSIDE, REQUESTING MEDICATION TO HELP PT RELAX. PT CLEANED UP AND REPOSITIONED. MEDICATED FOR ANXIETY, APPEARS TO BE SETTLING DOWN TO GO TO SLEEP. WCTM.
--- NOTE | 2020-10-13 04:10 | NUR ---
PARACHUTE RIGGER SUMMARY PT YELLING OUT FOR SISTER, INCREASINGLY AGITATED, REMOVING ATTENDS AND RESTLESS IN BED. MEDICATED FOR ANXIETY AND REPOSITIONED. RESTING AT THIS TIME. NO OTHER ACUTE NEEDS ASSESSED. POSSESSIONS IN REACH, BED IN LOW AND LOCKED POSITION WITH ALARMS ON.
--- NOTE | 2020-10-13 16:33 | NUR ---
Comfort Care Visit Pt in bed and appears anxious and pain full. Pt saying help me. Assisted staff with repositioning of Pt. Spoke with Primary RN Chad and reviewed comfort medications. Chad will offer Roxanol for comfort. Palliative Care will remain available.
--- NOTE | 2020-10-14 03:45 | NUR ---
SHIFT SUMMARY PATIENT ON COMFORT CARE. TAKES MEDS CRUSHED IN APPLESAUCE. NO S/SX OF PAIN, SOB, AND N/V. YELLING OUT AND AGITATED T/O SHIFT. CALL LIGHT IN REACH. BED IN LOWEST POSITION. WILL CONTINUE TO MONITOR UNTIL DAY SHIFT NURSE ASSUMES CARE.
--- NOTE | 2020-10-14 19:49 | NUR ---
ALERT AND ORINTATED TO SELF, CALLS OUT WORDLESS SOUNDS, SISTER SAYS SLURED DUE TO CVA, RESISTED MEDICATION AND CARE BUT ALLOWS SOME THINGS IF PRESENTED IN THE WAY HE WANTS, CALL LIGHT IN REACH, RM AIR, NO IV, REPORT SHARED WITH NOC NURSE
--- NOTE | 2020-10-15 04:56 | NUR ---
STACKER DRIVER SUMMARY PT A/O X0, NONSENSICAL SPEECH. PT DID NOT SHOW ANY SIGNS OF PAIN, HE WAS AGITATED AND WAS MEDICATED FOR THIS. PT TAKES MED CRUSHED IN APPLESAUCE. IINCONTIENT, ATTENDS IN PLACE AND PULLS IT OFF OFTEN. PT ABLE TO REPOSITION SELF. ROOM AIR. BED ALARM ON, CALL LIGHT WITHIN REACH, WILL CONTINUE TO MONITOR.
--- NOTE | 2020-10-15 06:57 | NUR ---
FALL AROUND 0600 PT WAS FOUND KNEELING ON THE FLOOR WITH HIS UPPER BODY STILL LEANING ON THE BED. NO INJURIES. PT IS COMFORT CARE. PT IS CONFUSED, AND NON-DIRECTABLE. DENIED PAIN AT TIME OF EVENT. BED ALARM HAS BEEN ON ALL SHIFT, WELL CAMERA MONITOR. BED HAS BEEN IN LOWEST POSITION, CALL LIGHT WITHIN REACH. WILL CONTINUE TO MONITOR.
--- NOTE | 2020-10-15 09:58 | NUR ---
Update 10/13/20: Per chart review, patient's condition seems to have declined further over the weekend. Call received from patient's nephew David this am to discuss end of life planning. Dr. Diggs had advised patient's sister Tessa that pt. has continued to decline. Family has continued to agree that hospice care would be best for pt. Unknown if pt. will make it out of the hospital prior to passing. We will continue to work toward COVID facility placement. Reaching out to palliative care today to request a call to family to answer questions regarding end of life care.
--- NOTE | 2020-10-15 15:20 | NUR ---
Review of pt symptoms with nursing. Review of funneral plan with family they chose [facility]. pt appears to be transitioning updated [facility] care director.
--- NOTE | 2020-10-15 17:30 | NUR ---
NO ACUTE CHANGES THIS SHIFT. PT ON COMFORT CARE, SISTER AT BEDSIDE MOST OF DAY. PT WAS AGGITATED AND CRYING OUT FREQUENTLY DURING DAY. MEDICATED WITH ROXINOL AND ATIVAN WITHOUT MUCH IMPROVEMENT. IM ZYPREXIA GIVEN AND WAS EFFECTIVE. PT RESTED QUIETLY AFTER ADMINISTRATION. SISTER REPORTS SHE WILL BE LEAVING TO HOME TOMORROW AND HER DAUGHTER WILL BE HERE THURSDAY OR THURSDAY TO BE WITH PT.
--- NOTE | 2020-10-16 06:08 | NUR ---
SHIFT SUMMARY- PT. ON COMFORT CARE, NOT RESPONSIVE TO VERBAL STIMULI. MEDICATED FOR PAIN, PT. SLEPT MOST OF THE NIGHT. REPOSITIONED FOR COMFORT/PRN. WILL CONT TO MONITOR.
--- NOTE | 2020-10-16 09:19 | NUR ---
Update 10/16/20: Palliative care nurse Maggy visited pt. yesterday and noted pt. to likely be transitioning. Family has been updated. They have chose [facility] for a home. Family requesting pt. to be cremated. Family will contact home to discuss details. At this time pt. is likely to pass within the week. Transporting him to a COVID facility would not be in his best interested. Will provide family with updates as indicated based on patient's condition.
--- NOTE | 2020-10-16 17:51 | NUR ---
Pt is sleeping more, bedside nurse notices more noisy, moist breathing. She reports pt has hardly woken. Advised her to begin roxanol, even at low dose every 4-6 hours, as the apnea and moist breathing is likely indicitive of dyspnea. She v/u. Will follow up with pt's sister to update her on pt's condition.
--- NOTE | 2020-10-16 18:14 | NUR ---
PT ON COMFORT CARE, SISTER AT BEDSIDE MOST OF DAY. PT REAMINS NON-RESPONSIVE TO STIMULI. PT'S HAS COARSE WET LS/ RESPIRATIONS. PALLATIVE CARE NURSE RECOMENDS PT BE GIVEN ORAL ROXINAL Q4 HRS TO ASSIST WITH AIR HUNGER. ORAL CARE AND REPOSITIONING COMPLETED T/O DAY. PT DID HAVE WHAT APPEARED TO HAVE GI SECRETIONS/EMESIS DRAINIG FROM NOSE AND MOUTH TODAY. DUE TO PT'S LOW RISK OF FALL AT THIS TIME VIDEO MONITORING HAS BEEN D/C'D. SISTER RETURNED HOME OUT OF STATE TODAY AND HIS NIECE IS EXPECTED TO ARRIVE THURSDAY OR THURSDAY. NO OTHER ACUTE CHANGES THIS SHIFT.
--- NOTE | 2020-10-17 06:41 | NUR ---
SHIFT SUMMARY PT IS AN 80 Y/O MALE, ADMITTED FOR PNA D/T COVID AND CURRENTLY COMFORT CARE. HE IS UNRESPONSIVE AT THIS TIME, WITH SOME APNEIC PAUSES NOTED. NO S/S OF PAIN OR DISTRESS. NO OUTPUT NOTED. NO ACUTE CHANGES IN PT CONDITION NOTED DURING THE NIGHT. WILL CONTINUE TO MONITOR AND TREAT PER EMAR UNTIL HAND OFF TO DAY SHIFT RN.
--- NOTE | 2020-10-17 16:37 | NUR ---
Update 10/17/20: Pt. is unresponsive. Apneic pauses noted. Comfort measures in place. Tachycardic at 116 per most recent vitals. SPO2 decreased slightly. Spoke with Carmela in palliative care who believes pt. is actively passing. Attempted to reach Nephew to provide update, no answer. Will try again in the am. Discussed care with Dr. Gonzalez. He is in agreement that moving patient out of the hospital is not in his best interest at this time as it would likely cause unnecessary trauma for both the patient and family. Pt. likely to pass away soon.
--- NOTE | 2020-10-17 18:48 | NUR ---
PT HAS REMAINED UNRESPONSIVE T/O DAY. SCOPALAMINE PATCH APPLIED TO HELP WITH EXCESSIVE RESPIRATORY SECRETIONS. COMFORT MEASURES IN PLACE. NO S/S OF PAIN OR DISCOMFORT DURING DAY. NO CHANGES IN PT STATUS T/O DAY
--- NOTE | 2020-10-17 20:14 | NUR ---
COMFORT CARE PT IS NON-RESPONSIVE. ORAL CARE PERFORMED. NO SIGNS OF DISTRESS OR DISCOMFORT. BED ALARM ON. WILL CONTINUE TO MONITOR.
--- NOTE | 2020-10-18 01:23 | NUR ---
COMFORT CARE PT IS SLEEPING IN BED, NO SIGNS OF DISCOMFORT OR DISTRESS. REPOSITIONED, ORAL MOISTURIZER APPLIED TO LIPS AND GUMS. BED IN LOWEST POSITION. WILL CONTINUE TO MONITOR.
--- NOTE | 2020-10-18 03:30 | NUR ---
RN CALLED NATALIYA DAMIAN TO NOTIFY OF PT'S PASSING AT 0210 AM.
--- NOTE | 2020-10-18 04:37 | NUR ---
COMFORT CARE PT IS NOT IN SIGNS OF DISTRESS OR DISCOMFORT. AT THIS TIME, ORAL CARE PERFORMED AND PT REPOSITIONED.
--- NOTE | 2020-10-18 04:39 | NUR ---
COMFORT CARE PT APPEARS TO BE IN NO DISTRESS OR DISCOMFORT. OPEN MOUTH BREATHING, NO SX OF SECRETIONS.
--- NOTE | 2020-10-18 09:04 | NUR ---
Update 10/18/20: Pt. early this am. Nephew David was notified by staff. [facility] was already selected previously for home. [place] chart will be updated and PCP notified.
== END 2020-10-18 02:10 | DRG 177 ==
LOC: ER 08:03 → ERHOLD 13:09 → MEDS 13:09 → ERHOLD 16:32 → MEDS 17:22
PROVIDERS: Emergency Medicine; Student in an Organized Health Care Education/Training Program; ADMIT Family Medicine
PROC: 8E0ZXY6 Isolation (ICD-10-PCS; principal; 2020-10-02)
PROC: XW033E5 Introduction of Remdesivir Anti-infective into Peripheral Vein, Percutaneous Approach, New Technology Group 5 (ICD-10-PCS; 2020-10-02)
PROC: 3E0DX3Z Introduction of Anti-inflammatory into Mouth and Pharynx, External Approach (ICD-10-PCS; 2020-10-03)
DX: U07.1 COVID-19 (principal); J12.82 Pneumonia due to coronavirus disease 2019; G93.41 Metabolic encephalopathy; I67.82 Cerebral ischemia; N17.9 Acute kidney failure, unspecified; F05 Delirium due to known physiological condition; Z66 Do not resuscitate; Z51.5 Encounter for palliative care; F03.90 Unspecified dementia, unspecified severity, without behavioral disturbance, psychotic disturbance, mood disturbance, and anxiety; E11.22 Type 2 diabetes mellitus with diabetic chronic kidney disease; I25.10 Atherosclerotic heart disease of native coronary artery without angina pectoris; I12.9 Hypertensive chronic kidney disease with stage 1 through stage 4 chronic kidney disease, or unspecified chronic kidney disease; E11.51 Type 2 diabetes mellitus with diabetic peripheral angiopathy without gangrene; E86.9 Volume depletion, unspecified; F32.9 Major depressive disorder, single episode, unspecified; N40.0 Benign prostatic hyperplasia without lower urinary tract symptoms; N18.9 Chronic kidney disease, unspecified; E78.5 Hyperlipidemia, unspecified; I73.9 Peripheral vascular disease, unspecified; I25.2 Old myocardial infarction; D63.1 Anemia in chronic kidney disease; I65.29 Occlusion and stenosis of unspecified carotid artery; R26.0 Ataxic gait; Z86.73 Personal history of transient ischemic attack (TIA), and cerebral infarction without residual deficits; Z79.02 Long term (current) use of antithrombotics/antiplatelets; Z88.5 Allergy status to narcotic agent; Z88.8 Allergy status to other drugs, medicaments and biological substances; Z79.4 Long term (current) use of insulin; Z79.899 Other long term (current) drug therapy; Z79.82 Long term (current) use of aspirin; Z95.1 Presence of aortocoronary bypass graft; Z78.1 Physical restraint status; Z98.890 Other specified postprocedural states
CPT/HCPCS: 36415; 70450; 71045; 74177; 80048; 80053; 81001; 82607; 82746; 82947; 83735; 83880; 84145; 84484; 85025; 86140; 92610; 93005; 93010; 93880; 96372-59; 96374; 96375; 99285-25; A9270; G0480; J0295; J0456; J1650; J1815; J2060; J7030; J7040; J7050; Q9967; U0004